=== PATIENT | female | born 1955 | race Caucasian/White ===

== ENCOUNTER 2017-10-30 05:56 | Day surgery (SDC) | payer OTHER ==
[2017-10-30] MEDS ORDERED: MIDAZOLAM 1 MG/ML 2 ML INJ (07:48)
[2017-10-30] MEDS ORDERED: FENTAnyl 50 MCG/ML VIAL (07:48)
[2017-10-30] MEDS ORDERED: PROPOFOL 20 ML (07:48)
== END 2017-10-30 10:41 | disposition home or self-care (01) ==
LOC: GIL 05:56
DX: Z12.11 Encounter for screening for malignant neoplasm of colon (principal); K29.50 Unspecified chronic gastritis without bleeding; K64.8 Other hemorrhoids; E11.9 Type 2 diabetes mellitus without complications; I10 Essential (primary) hypertension
CPT/HCPCS: 43239; 82962; 88305; 88312